=== PATIENT | female | born 1950 | race Caucasian/White ===

== ENCOUNTER 2016-10-02 13:06 | Emergency (ER) | payer OTHER ==
[~2016-10-02] VITALS: Ht 160 cm; Wt 147.3 kg
[~2016-10-02 13:06] MED LIST: ALEN70TA39 PO; ALLO300T2 PO; ASPI325T PO; ATOR40TA49 PO; BACL10TA PO; BUME2TAB PO; CALC-197 PO; ENAL20TA PO; FENO160T2 PO; GABA300C3 PO; LEVO100T4 PO; POTA-243 PO; TAB-TAB PO; TAMO20TA4 PO; ULTR50TA PO; VENL150T14 PO
[2016-10-02 13:09] VITALS: BP 231/103; PULSE 99; RESP 17; TEMP 97.8; O2SAT 95
[2016-10-02 13:30] VITALS: RESP 18; O2SAT 97
[2016-10-02] MEDS ORDERED: SODIUM CHLORIDE 0.9% FLUSH 5 ML FLUSH IVF PRN (13:30)
[2016-10-02] MEDS ORDERED: amLODIPine BESYLATE 5 MG TAB PO ONE (13:30)
[2016-10-02 14:07] LABS: AUTOMATED NEUTROPHIL # 5.5 TH/MM3 (1.8-7.7); BASOPHIL # 0.1 TH/MM3 (0-0.2); BASOPHIL % 1.2 % (0.0-2.0); EOSINOPHIL # 0.1 TH/MM3 (0-0.4); EOSINOPHIL % 1.4 % (0.0-4.0); HEMATOCRIT 37.4 % (35.0-46.0); LYMPH % 23.8 % (9.0-44.0); LYMPHOCYTE # 1.9 TH/MM3 (1.0-4.8); MEAN CELL VOLUME 82.2 FL (80.0-100.0); MEAN CORPUSCULAR HEMOGLOBIN 27.2 PG (27.0-34.0); MEAN CORPUSCULAR HGB CONC 33.2 % (32.0-36.0); MONO % 6.1 % (0.0-8.0); NEUT % 67.5 % (16.0-70.0); PLATELET COUNT 351 TH/MM3 (150-450); RED BLOOD COUNT 4.55 MIL/MM3 (4.00-5.30); RED CELL DISTRIBUTION WIDTH 16.6 % (11.6-17.2); WHITE BLOOD COUNT 8.2 TH/MM3 (4.0-11.0)
[2016-10-02 14:08] LABS: HEMO FLAGS AUTO DIFF
[2016-10-02] MEDS ORDERED: VASO10TA8 PO (14:11)
[2016-10-02] MEDS ORDERED: ENAL20TA81 PO (14:11)
[2016-10-02] MEDS ORDERED: FENO160T PO (14:11)
[2016-10-02] MEDS ORDERED: VENL75TA PO (14:11)
[2016-10-02] MEDS ORDERED: POTA-243 PO (14:11)
[2016-10-02] MEDS ORDERED: AMLO5 PO (14:11)
[2016-10-02] MEDS ORDERED: ATOR40TA16 PO ×2 (14:11)
[2016-10-02] MEDS ORDERED: BUME1TAB28 PO (14:11)
[2016-10-02] MEDS ORDERED: ALEN1TAB48 PO (14:11)
[2016-10-02] MEDS ORDERED: ASPI325T PO (14:12)
[2016-10-02] MEDS ORDERED: TRAM50TA PO (14:12)
[2016-10-02] MEDS ORDERED: LEVO100T5 PO (14:12)
[2016-10-02] MEDS ORDERED: ALLO300T2 PO (14:12)
[2016-10-02] MEDS ORDERED: NABU1TAB37 PO (14:12)
[2016-10-02] MEDS ORDERED: GABA600T PO (14:12)
[2016-10-02 14:24] LABS: ANION GAP 8 MEQ/L (5-15); BLOOD UREA NITROGEN 16 MG/DL (7-18); CHLORIDE 101 MEQ/L (98-107); GLOMERULAR FILTRATION RATE 59 ML/MIN (>89); SODIUM (NA) 138 MEQ/L (136-145)
[2016-10-02 14:44] LABS: SCAN/DIFF AUTO DIFF CONFIRMED
--- NOTE | 2016-10-02 14:49 | RADRPT ---
EXAM DATE/TIME: 10/02/2016 14:20 [place] COMPARISON: CT BRAIN W/O CONTRAST, January 10, 2016, 13:59. INDICATIONS : Elevated blood pressure RADIATION DOSE: 42.15 CTDIvol (mGy) MEDICAL HISTORY : Cardiovascular disease. Hypertension. Carcinoma, breast. SURGICAL HISTORY : Tubal ligation. ENCOUNTER: Initial ACUITY: 1 day PAIN SCALE: 4/10 LOCATION: cranial TECHNIQUE: Multiple contiguous axial images were obtained of the head. Using automated exposure control and adj ustment of the mA and/or kV according to patient size, radiation dose was kept as low as reasonably a chievable to obtain optimal diagnostic quality images. FINDINGS: CEREBRUM: The ventricles are normal for age. No evidence of midline shift, mass lesion, hemorrhage or acute in farction. No extra-axial fluid collections are seen. POSTERIOR FOSSA: The cerebellum and brainstem are intact. The 4th ventricle is midline. The cerebellopontine angle i s unremarkable. EXTRACRANIAL: The visualized portion of the orbits is intact. SKULL: The calvaria is intact. No evidence of skull fracture. CONCLUSION: Negative for an acute process. Adithya Munoz MD FACR on October 02, 2016 at 14:45 Board Certified Radiologist. This report was verified electronically.
[2016-10-02 14:52] VITALS: BP 168/75; PULSE 78; RESP 17; TEMP 97.8; O2SAT 98
--- NOTE | 2016-10-02 14:54 | PD ---
HPI Chief Complaint: Hypertension Time Seen by Provider: 13:19 Travel History International Travel<30 days: No Contact w/Intl Traveler<30days: No Traveled to known affect area: No History of Present Illness HPI 66-year-old female came to the emergency room with history of hypertension. She said for past 2 days her blood pressure has been running more than 200. She is been complaining of headache and some chest pressure as well. Her blood pressure was 230s systolic. She's been checking her blood pressure at home and brought her reads with her. They have been more than 200. Patient had seen her primary care last week for this and was started on amlodipine 5 mg once a day which she has been taking along with her pre-existing metoprolol. Patient is morbidly obese. FOR[facility]LY [facility] Past Medical History Narrative Medical List of her past medical, social and family history is been reviewed from the nursing note. Arthritis: Yes Asthma: No Autoimmune Disease: No Anxiety: Yes Depression: Yes Heart Rhythm Problems: No Cancer: Yes (BREAST CANCER) Cardiovascular Problems: Yes High Cholesterol: Yes Chemotherapy: Yes Chest Pain: No Congestive Heart Failure: No COPD: No Cerebrovascular Accident: No Diabetes: No Diminished Hearing: No Endocrine: Yes Gastrointestinal Disorders: No GERD: No Genitourinary: Yes Hepatitis: No Hiatal Hernia: No Hypertension: Yes Immune Disorder: No Implanted Vascular Access Dvce: Yes Kidney Stones: No Musculoskeletal: Yes Neurologic: No Psychiatric: Yes Reproductive: Yes Respiratory: Yes Migraines: No Radiation Therapy: Yes Renal Failure: No Seizures: No Sickle Cell Disease: No Sleep Apnea: No Thyroid Disease: Yes (PARTIAL THYROIDECTOMY) Ulcer: No Tetanus Vaccination: < 5 Years : 1 Para: 1 Tubal Ligation: Yes Past Surgical History Abdominal Surgery: No AICD: No Arteriovenous Shunt: No Cardiac Surgery: No Ear Surgery: No Endocrine Surgery: Yes (PARTIAL THYROIDECTOMY ) Eye Surgery: No Genitourinary Surgery: No Gynecologic Surgery: Yes (TUBAL LIGATION, BILATERAL OOPHORECTOMY ) Insulin Pump: No Joint Replacement: Yes (RIGHT TOTAL KNEE) Neurologic Surgery: Yes (PYELONIDAL CYST REMOVAL ) Oral Surgery: Yes (TONSILLECTOMY) Pacemaker: No Thoracic Surgery: Yes (BILATERAL MASTECTOMY) Tonsillectomy: Yes Other Surgery: Yes Social History Alcohol Use: No Tobacco Use: No (QUIT) Substance Use: No Allergies-Medications (Allergen,Severity, Reaction): Coded Allergies: Wellbutrin (Verified Allergy, Severe, RASH, 10/02/16) Comments List of her allergies reviewed from the nursing note. Reported Meds & Prescriptions Reported Meds & Active Scripts Active Reported Allopurinol 300 Mg Tab 300 Mg PO DAILY Aspirin 325 Mg Tab 325 Mg PO DAILY Tramadol (Tramadol HCl) 50 Mg Tab 50 Mg PO Q8H PRN Nabumetone 500 Mg Tab 500 Mg PO BID Gabapentin 600 Mg Tab 600 Mg PO TID Levothyroxine (Levothyroxine Sodium) 100 Mcg Tab 100 Mcg PO DAILY Fenofibrate 160 Mg Tab 160 Mg PO DAILY Alendronate (Alendronate Sodium) 70 Mg Tab 70 Mg PO Q7D Klor-Con 10 (Potassium Chloride) 10 Meq Tab 10 Meq PO DAILY Atorvastatin (Atorvastatin Calcium) 40 Mg Tab 40 Mg PO DAILY Atorvastatin (Atorvastatin Calcium) 40 Mg Tab 40 Mg PO HS Bumex (Bumetanide) 2 Mg Tab 2 Mg PO DAILY Norvasc (Amlodipine Besylate) 5 Mg Tab 5 Mg PO DAILY Vasotec (Enalapril Maleate) 10 Mg Tab 20 Mg PO BID Vasotec (Enalapril Maleate) 20 Mg Tab 20 Mg PO DAILY Effexor (Venlafaxine HCl) 75 Mg Tab 150 Mg PO DAILY Narrative Medication List of her home medications reviewed from the nursing note. Review of Systems Except as stated in HPI: all other systems reviewed are Neg Physical Exam Narrative GENERAL: Awake, alert, morbidly obese, anxious SKIN: Warm and dry. HEAD: Atraumatic. Normocephalic. EYES: Pupils equal and round. No scleral icterus. No injection or drainage. ENT: No nasal bleeding or discharge. Mucous membranes pink and moist. NECK: Trachea midline. No JVD. CARDIOVASCULAR: Regular rate and rhythm. No murmur appreciated. RESPIRATORY: No accessory muscle use. Clear to auscultation. Breath sounds equal bilaterally. GASTROINTESTINAL: Abdomen soft, non-tender, nondistended. Hepatic and splenic margins not palpable. MUSCULOSKELETAL: No obvious deformities. No clubbing. No cyanosis. No edema. NEUROLOGICAL: Awake and alert. No obvious cranial nerve deficits. Motor grossly within normal limits. Normal speech. PSYCHIATRIC: Appropriate mood and affect; insight and judgment normal. Data Data Last Documented VS Vital Signs Date Time Temp Pulse Resp B/P Pulse Ox O2 Delivery O2 Flow Rate FiO2 10/02/16 14:55 97.8 78 17 150/78 10/02/16 14:52 98 Room Air Orders Electrocardiogram (10/02/16 13:25) Complete Blood Count With Diff (10/02/16 13:25) Basic Metabolic Panel (Bmp) (10/02/16 13:25) Troponin I (10/02/16 13:25) Ct Brain W/O Iv Contrast(Rout) (10/02/16 13:25) Ecg Monitoring (10/02/16 13:25) Iv Access Insert/Monitor (10/02/16 13:25) Oximetry (10/02/16 13:25) Sodium Chloride 0.9% Flush (Ns Flush) (10/02/16 13:30) Amlodipine (Norvasc) (10/02/16 13:30) Labs Laboratory Tests Test 10/02/16 10/03/16 13:50 20:15 White Blood Count 8.2 TH/MM3 Red Blood Count 4.55 MIL/MM3 Hemoglobin 12.4 GM/DL Hematocrit 37.4 % Mean Corpuscular Volume 82.2 FL Mean Corpuscular Hemoglobin 27.2 PG Mean Corpuscular Hemoglobin 33.2 % Concent Red Cell Distribution Width 16.6 % Platelet Count 351 TH/MM3 Mean Platelet Volume 7.9 FL Neutrophils (%) (Auto) 67.5 % Lymphocytes (%) (Auto) 23.8 % Monocytes (%) (Auto) 6.1 % Eosinophils (%) (Auto) 1.4 % Basophils (%) (Auto) 1.2 % Neutrophils # (Auto) 5.5 TH/MM3 Lymphocytes # (Auto) 1.9 TH/MM3 Monocytes # (Auto) 0.5 TH/MM3 Eosinophils # (Auto) 0.1 TH/MM3 Basophils # (Auto) 0.1 TH/MM3 CBC Comment AUTO DIFF Differential Comment AUTO DIFF CONFIRMED Sodium Level 138 MEQ/L Potassium Level 5.0 MEQ/L Chloride Level 101 MEQ/L Carbon Dioxide Level 29.0 MEQ/L Anion Gap 8 MEQ/L Blood Urea Nitrogen 16 MG/DL Creatinine 0.95 MG/DL Estimat Glomerular Filtration 59 ML/MIN Rate Random Glucose 89 MG/DL Calcium Level 9.9 MG/DL Troponin I LESS THAN 0.02 NG/ML Lab Scanned Report Lab Reports - Other [id number] MDM Medical Decision Making Medical Screen Exam Complete: Yes Emergency Medical Condition: Yes Interpretation(s) Twelve-lead EKG was reviewed by me. Normal sinus rhythm, normal axis, LVH, interventricular conduction delay, nonspecific ST-T wave changes. Heart rate of 87 bpm. Differential Diagnosis Essential hypertension, malignant hypertension, ACS, intracranial bleed Narrative Course 2:58 PM all the blood test results and the CAT scan results are back. They are all within normal limit. Patient was given 5 mg of amlodipine in the ER and currently blood pressure is 167/97. I am comfortable discharging her home. I have asked the patient to increase her amlodipine to 10 mg daily. She has brought her own the blood pressure device and the nurse is checking her blood pressure with it to see if it corresponds with our current blood pressure. Procedures EKG Prior to Arrival: Yes Diagnosis Primary Impression: Headache Qualified Code: R51 - Nonintractable headache, unspecified chronicity pattern , unspecified headache type Additional Impressions: Essential hypertension Morbid obesity Qualified Code: E66.01 - Morbid obesity, unspecified obesity type Referrals: Primary Care Physician 2 days Additional Instructions: Please take her amlodipine 10 mg once a day starting tomorrow. Please follow- up with your primary care. Keep a blood pressure log book and take it with you to the primary care. Return to the ER if the condition worsens or any concerns. Disposition: 01 DISCHARGE HOME Condition: Stable Eugenie Guadalupe MD Oct 02, 2016 14:54
[2016-10-02 14:55] VITALS: BP 150/78; TEMP 97.8
--- NOTE | 2016-10-09 14:58 | EKG ---
Date Performed: 10/02/2016 Time Performed: 13:46:58 PTAGE: 66 years EKG: Sinus rhythm MODERATE INTRAVENTRICULAR CONDUCTION DELAY BORDERLINE ECG Compared to prior tracing no significant c olivier PREVIOUS TRACING : 01/09/2016 20.48 DOCTOR: Toro Magaña Interpretating Date/Time 10/09/2016 14:57:31
== END 2016-10-02 15:00 | disposition home or self-care (01) ==
LOC: NEPA 13:06
DX: R51 Headache (principal); I10 Essential (primary) hypertension; E66.01 Morbid (severe) obesity due to excess calories; R07.89 Other chest pain; R94.31 Abnormal electrocardiogram [ECG] [EKG]; E07.9 Disorder of thyroid, unspecified; E78.00 Pure hypercholesterolemia, unspecified; Z87.39 Personal history of other diseases of the musculoskeletal system and connective tissue; Z86.59 Personal history of other mental and behavioral disorders; Z85.3 Personal history of malignant neoplasm of breast; Z86.79 Personal history of other diseases of the circulatory system; Z87.448 Personal history of other diseases of urinary system; Z87.42 Personal history of other diseases of the female genital tract; Z87.09 Personal history of other diseases of the respiratory system
CPT/HCPCS: 70450; 80048; 84484; 85025; 93005

== ENCOUNTER → 2017-10-25 | Day surgery (SDC) | payer OTHER ==
[~2017-10-25] MED LIST changes: +ACETAMINOPHEN/HYDROcodone 325 MG/5 MG TAB ONE; +ALEN1TAB48 PO; -ALEN70TA39 PO; +AMLO5 PO; +ASPI-183 PO; -ASPI325T PO; +ATOR40TA16 PO; -ATOR40TA49 PO; -BACL10TA PO; +BUME1TAB28 PO; -BUME2TAB PO; -CALC-197 PO; -ENAL20TA PO; +ENAL20TA81 PO; +FENO160T PO; -FENO160T2 PO; -GABA300C3 PO; +GABA600T PO; +KETOROLAC TROMETHAMINE 30 MG/ML (IVP) VIAL ONE; +KLOR10TA PO; -LEVO100T4 PO; +LEVO100T5 PO; +MIDAZOLAM HCL 2 MG/2 ML VIAL ONE; +NABU1TAB37 PO; -POTA-243 PO; +PROPOFOL 200 MG/20 ML AMP IV ONE; -TAB-TAB PO; -TAMO20TA4 PO; +TRAM50TA PO; -ULTR50TA PO; +VASO10TA8 PO; -VENL150T14 PO; +VENL75TA PO
--- NOTE | 2017-10-25 10:42 | MP ---
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 PROCEDURE PERFORMED: Left knee manipulation under anesthesia with fluoroscopic evaluation. ANESTHESIA: Monitored anesthetic care. SURGEON: Darren Elizabeth MD ESTIMATED BLOOD LOSS: None. COMPLICATIONS: None known. INDICATIONS: Maria Elena Osborne is a 67-year-old female who underwent left total knee arthroplasty and had arthrofibrosis. She is failing conservative measures to treat this and now presents for manipulation under anesthesia. The risks and alternatives were thoroughly discussed in detail. Informed consent was obtained. PROCEDURE: The patient was brought into the operating room. She was placed under deep monitored anesthetic care. A time-out was completed. [place] flexion of the knee was 85 degrees. We then did a gentle manipulation and manipulated the knee to 140 degrees and then when we were finished, we had gravity flexion to 115 degrees, but could easily push to 130 degrees. We manipulated in extension and had full extension as well. X-rays AP and lateral final results showed no fracture. The patient was awakened and returned to the recovery room in stable condition. MD CHACE Glass/CLARKE , 10:19 AM , 10:40 AM
== END | disposition home or self-care (01) ==
LOC: ESDC 07:40
PROVIDERS: ATTEND Orthopaedic Surgery Sports Medicine
DX: M24.662 Ankylosis, left knee (principal); Z96.652 Presence of left artificial knee joint
CPT/HCPCS: 01380; 27570; 73560; 76000; J1885; J2250; J3010